=== PATIENT | male | born 1945 | race Caucasian/White ===

== ENCOUNTER → 2020-02-25 | Day surgery (SDC) | payer BC, OTHER ==
[2020-02-21 11:44] LABS: BASOPHILS # (AUTO) 0.1 (0.0-0.1); BASOPHILS % 0.9 % (0.0-1.0); EOSINOPHILS # (AUTO) 0.3 (0.0-0.4); EOSINOPHILS % 4.9 % (0.0-6.0); HEMATOCRIT 40.7 % (38.2-49.6); HEMOGLOBIN 13.4 g/dL (14.0-18.0); LYMPHOCYTES # (AUTO) 1.6 (1.0-3.2); LYMPHOCYTES % 24.9 % (18.0-39.1); MEAN CORPUSCULAR HEMOGLOBIN 29.6 pg (28-32); MEAN CORPUSCULAR HGB CONC 32.9 g/dL (31-35); MONOCYTES # (AUTO) 0.5 (0.2-0.8); MONOCYTES % 8.3 % (4.4-11.3); NEUTROPHILS # (AUTO) 3.9 (2.1-6.9); NEUTROPHILS % 60.7 % (38.7-80.0); PLATELET COUNT 235 x10e3/uL (140-360); RED BLOOD COUNT 4.52 x10e6/uL (4.3-5.7); RED CELL DISTRIBUTION WIDTH 12.9 % (11.7-14.4)
[~2020-02-25] MED LIST: ALPHA LIPOIC A300 MG PO; ASPIRIN81 M2 PO; BYDUREON2 MG INJ; ELIQUIS5 M1 PO; GLUCAGON FOR INJ 1 MG VIAL ONE; HYOSCYAMINE 0.125 MG TAB ONE; LANTUS100 UNITS/ INJ; LOFIBRA160 MG PO; LOSARTAN POTASS25 MG PO; MULTIVITAMIN1 EAC1; NOVOLOG100 UNITS/ INJ; OMEGA 3 1,0001 EACH PO; ONE-A-DAY PREN1 EAC1 PO; PANTOPRAZOLE SO40 MG PO; PROBIOTIC & AC1 EACH PO; PROPOFOL IV EMULSION 10 MG/ML 20 ML VIAL ONE; TOUJEO SOL300 UNIT/1 SQ; TRAMADOL HCL50 M1 PO; TRULICITY3 MG/0.5 M SQ; VITAMIN D3250 MCG PO; Z.0.AVAPRO150 MG; Z.0.FOLIC ACID1 MG PO; Z.0.GEMFIBROZIL600 M; Z.0.PRAVASTATIN SOD4 PO; Z.0.PREVACID15 MG; Z.0.PROMETHAZINE HC2 PO; Z.0.VICTOZA 2-0.6 MG; Z.1.HYDROCHLOROTH12.; Z.1.METFORMIN HCL100; Z.1.METHOTREXATE2.5; [UNRECOGNIZED DRUG - OTHER]
[2020-02-25 09:00] VITALS: BP 121/69
--- NOTE | 2020-02-25 11:24 | Operative Report ---
DATE OF PROCEDURE: 02/25/2020 SURGEON: Anish Rivera MD PROCEDURE: Colonoscopy with polypectomy. INDICATIONS FOR COLONOSCOPY: Surveillance colonoscopy, personal history of colon polyps. MEDICATIONS: The patient was done under MAC, please see anesthesiologist's note. PROCEDURE IN DETAIL: With the patient in left lateral decubitus position, a flexible fiberoptic Olympus colonoscope was inserted into the rectum with ease and advanced all the way to the cecum. There was a minute polyp noted in the cecum, that was removed per cold biopsy forceps. Some diverticular disease was noted in the proximal ascending colon. Two minute polyps were removed per cold biopsy forceps from the ascending colon and two polyps up to 6 mm in size were removed per hot snare polypectomy from the transverse colon. Diverticular disease was also noted to involve the descending and the sigmoid colon. The rectum appeared to be within normal limits. The scope was then retroflexed into the distal rectum and small internal hemorrhoids were noted, none of which was actively bleeding. The scope was then straightened out, it was subsequently withdrawn. The patient tolerated the procedure well. Of note, the colon was excessively spastic and irritable, and was suboptimally visualized. IMPRESSION: 1. Colon excessively spastic and irritable, and suboptimally visualized. 2. Cecal polyp, cold biopsied. 3. Ascending colon polyps x2, cold biopsied. 4. Transverse colon polyps x2, hot snared. 5. Diverticulosis. 6. Internal hemorrhoids, none actively bleeding. PLAN: 1. Follow up histology. 2. Initiate high-fiber, low-fat diet. 3. Initiate high-fiber supplement. 4. The patient might benefit from a followup colonoscopy in 3 years. Anish Rivera MD [facility] [place] /[id number] cc: DR. CORIN RUSSELL
== END | disposition home or self-care (01) ==
LOC: OR 06:57
PROVIDERS: ATTEND Internal Medicine Gastroenterology
DX: D12.2 Benign neoplasm of ascending colon (principal); D12.0 Benign neoplasm of cecum; D12.3 Benign neoplasm of transverse colon; E11.9 Type 2 diabetes mellitus without complications; K29.70 Gastritis, unspecified, without bleeding; K59.09 Other constipation; I10 Essential (primary) hypertension; G47.33 Obstructive sleep apnea (adult) (pediatric); Z86.73 Personal history of transient ischemic attack (TIA), and cerebral infarction without residual deficits; K57.30 Diverticulosis of large intestine without perforation or abscess without bleeding; K64.8 Other hemorrhoids; Z86.010 Personal history of colon polyps; Z88.0 Allergy status to penicillin; Z88.2 Allergy status to sulfonamides; Z88.8 Allergy status to other drugs, medicaments and biological substances; Z82.49 Family history of ischemic heart disease and other diseases of the circulatory system; Z68.32 Body mass index [BMI] 32.0-32.9, adult; Z01.812 Encounter for preprocedural laboratory examination; U07.1 COVID-19; Z79.82 Long term (current) use of aspirin; Z79.4 Long term (current) use of insulin
CPT/HCPCS: 36415 ×2; 45380; 45385; 82948; 85025; J1610; J2704; U0002; 45378; 45384